=== PATIENT | male | born 1990 | race Caucasian/White ===

== ENCOUNTER 2024-05-06 13:50 | Emergency (ER) | payer SELFPAY ==
[2024-05-06] MEDS: Lidocaine 1% 10 ML MDV INJECT ONE (14:55)
== END 2024-05-06 15:16 | disposition home or self-care (01) ==
LOC: JD.ED 13:50
DX: S61.212A Laceration without foreign body of right middle finger without damage to nail, initial encounter (principal); Z88.0 Allergy status to penicillin; Z91.013 Allergy to seafood; W26.8XXA Contact with other sharp object(s), not elsewhere classified, initial encounter; Y93.89 Activity, other specified
CPT/HCPCS: 12001; 99283; J3490

== ENCOUNTER 2024-09-29 10:50 | Emergency (ER) | payer SELFPAY ==
[2024-09-29] MEDS: Sodium Chloride 0.9% 10 ML Syringe FLUSH PRN (12:25)
[2024-09-29] MEDS: Iopamidol 612 MG/ML 100 ML Bottle IVPUSH ONE (12:25)
[2024-09-29] MEDS: Nystatin Susp 100,000 Unit/ML 5 ML UD Cup PO ONE (12:35)
== END 2024-09-29 13:45 | disposition home or self-care (01) ==
LOC: JD.ED 10:50
DX: B08.5 Enteroviral vesicular pharyngitis (principal); R59.1 Generalized enlarged lymph nodes; K02.9 Dental caries, unspecified; Z88.0 Allergy status to penicillin; Z91.013 Allergy to seafood
CPT/HCPCS: 70491; 87651; 99283; A9270; J3490; Q9967